=== PATIENT | female | born 1990 | race African-American/Black ===

== ENCOUNTER 2023-07-25 07:16 | Emergency (ER) | payer SELFPAY ==
[2023-07-25] MEDS ORDERED: Multivit, Adult Inj 10 ML VIAL ONE (08:11)
[2023-07-25] MEDS ORDERED: Lorazepam 2 MG/ML VIAL ONE (08:11)
[2023-07-25] MEDS ORDERED: Folic Acid 5 MG/ML MDV ONE (08:11)
[2023-07-25] MEDS ORDERED: Ondansetron PF 4 MG/2 ML Vial ONE (08:11)
[2023-07-25] MEDS ORDERED: Pantoprazole 40 MG VIAL ONE (08:11)
[2023-07-25] MEDS ORDERED: Thiamine HCl 200 MG/2 ML VIAL ONE (08:11)
[2023-07-25] MEDS ORDERED: chlordiazePOXIDE HCl 25 MG CAP PO SCH (08:30)
[2023-07-25] MEDS ORDERED: Dextrose 5 %-0.45 % NaCl 1,000 ML ONE (08:43)
[2023-07-25] MEDS ORDERED: Iopamidol 370 76% 100 ML VIAL ONE (09:00)
[2023-07-25 09:04] LABS: ALT (SGPT) 27 U/L (8-55); AST (SGOT) 169 U/L (5-34); Albumin 2.7 g/dL (3.5-5.0); Alkaline Phosphatase 218 U/L (40-110); Anion Gap 21 mmol/L (10-20); BUN (Urea Nitrogen) 4 mg/dL (7.0-18.7); Bilirubin, Total 2.1 mg/dL (0.2-1.2); Calc. Creatinine Clearance 0 mL/min (70-130); Calcium 7.7 mg/dL (7.8-10.44); Carbon Dioxide 32 mmol/L (22-29); Chloride 85 mmol/L (98-107); Estimated GFR 127; Glucose 96 mg/dL (70-105); Potassium 3.1 mmol/L (3.5-5.1); Protein, Total 5.7 g/dL (6.0-8.3); Sodium 135 mmol/L (136-145)
[2023-07-25 09:09] LABS: Acetaminophen Less than 10 mcg/mL (10.0-30.0); Alcohol 193.4 mg/dL (Less than 10); Salicylate Less than 8.0 mg/dL (15.0-30.0)
[2023-07-25 09:20] LABS: #Lymphocytes 0.4 thou/uL (1.20-3.40); #Monocytes 0.4 thou/uL (0.11-0.59); #Neutrophils 7.1 thou/uL (1.40-6.50); %Basophils 0.4 % (0.0-1.0); %Lymphocytes 4.7 % (21.0-51.0); %Monocytes 4.8 % (0.0-10.0); Hematocrit 21.2 % (36.0-47.0); Hemoglobin 6.6 g/dL (12.0-16.0); Mean Corpuscular HGB CONC 31.1 g/dL (32.0-36.0); Mean Corpuscular Hemoglobin 28.3 pg (27.0-31.0); Mean Corpuscular Volume 90.8 fl (78.0-98.0); Mean Platelet Volume 7.3 fL (7.4-10.4); Platelet Count 397 10x3/uL (130-400); RBC Distribution Width 20.3 % (11.5-14.5); Red Blood Cell (RBC) Count 2.34 mill/uL (4.20-5.40); White Blood Cell (WBC) Count 7.9 10x3/uL (4.8-10.8)
[2023-07-25] MEDS ORDERED: Sodium Chloride 0.9% 1,000 ML ONE (09:55)
[2023-07-25 10:20] LABS: BHCG - Serum Negative (NEGATIVE); Pregs Control Bar Appear? YES (CONTROL BAR)
[2023-07-25 10:37] LABS: INR-International Normal Ratio 1.2; Prothrombin Time 15.6 sec (12.0-14.7)
[2023-07-25 10:38] LABS: PTT 29.4 sec (22.9-36.1)
[2023-07-25] MEDS ORDERED: Sodium Chloride 0.9% 500 ML ONE (11:43)
[2023-07-25 12:13] LABS: Bilirubin Negative (Negative); Blood, Urine Negative (Negative); Clarity Clear (Clear); Glucose, Urine (Dipstick) Negative (Negative); Ketone, Urine 15 mg/dL (Negative); Leukocyte Negative (Negative); Nitrite Negative (Negative); Protein, Urine (Dipstick) Negative (Neg-Trace)
[2023-07-25 12:20] LABS: Squamous Epithelial 0-3 HPF (0-3)
[2023-07-25 12:22] LABS: Amphetamine Not Detected (NotDetected); Barbiturates Screen Not Detected (NotDetected); Benzodiazepine Screen Detected (NotDetected); Cocaine Metabolite Screen Not Detected (NotDetected); Methadone Not Detected (NotDetected); Methamphetamine Not Detected (NotDetected); Opiate Screen Not Detected (NotDetected); Oxycodone Screen Not Detected (NotDetected); Phencyclidine (PCP) Not Detected (NotDetected); THC/Cannabinoid Screen Not Detected (NotDetected); Tricyclic Screen Not Detected (NotDetected)
== END 2023-07-25 12:30 | disposition short-term general hospital (02) ==
LOC: NAV ERS 07:16
DX: K92.2 Gastrointestinal hemorrhage, unspecified (principal); K70.30 Alcoholic cirrhosis of liver without ascites; F10.129 Alcohol abuse with intoxication, unspecified; Y90.6 Blood alcohol level of 120-199 mg/100 ml
CPT/HCPCS: 36415; 74177; 80053; 80306; 80307; 81001; 82274; 84703; 85025; 85610; 85730; 86850; 86900; 86901; 93005; 96365; 96366; 96375; C9113; J2060; J2405; J3411; J7030; J7042; J7050; Q9967

== ENCOUNTER 2023-09-08 11:28 | Emergency (ER) | payer OTHER, SELFPAY ==
[2023-09-08] MEDS ORDERED: Lorazepam 2 MG/ML VIAL ONE (12:46)
[2023-09-08] MEDS ORDERED: Ondansetron PF 4 MG/2 ML Vial ONE (12:47)
[2023-09-08] MEDS ORDERED: Thiamine HCl 200 MG/2 ML VIAL ONE (12:47)
[2023-09-08] MEDS ORDERED: Sodium Chloride 0.9% 1,000 ML ONE (12:47)
[2023-09-08] MEDS ORDERED: Sodium Chloride 0.9% 100 ML ONE (12:56)
[2023-09-08 13:18] LABS: Hematocrit 44.4 % (36.0-47.0); Hemoglobin 13.8 g/dL (12.0-16.0); MDiff Complete? YES; Manual Diff?? YES; Mean Corpuscular HGB CONC 31.1 g/dL (32.0-36.0); Mean Corpuscular Hemoglobin 29.7 pg (27.0-31.0); Mean Corpuscular Volume 95.2 fl (78.0-98.0); Mean Platelet Volume 8.2 fL (7.4-10.4); Platelet Count 286 10x3/uL (130-400); RBC Distribution Width 15.4 % (11.5-14.5); Red Blood Cell (RBC) Count 4.67 mill/uL (4.20-5.40); White Blood Cell (WBC) Count 6.2 10x3/uL (4.8-10.8)
[2023-09-08 13:21] LABS: ALT (SGPT) 39 U/L (8-55); AST (SGOT) 154 U/L (5-34); Albumin 4.3 g/dL (3.5-5.0); Alkaline Phosphatase 142 U/L (40-110); Anion Gap 24 mmol/L (10-20); BUN (Urea Nitrogen) Less than 4 mg/dL (7.0-18.7); Bilirubin, Total 0.9 mg/dL (0.2-1.2); Calc. Creatinine Clearance 0 mL/min (70-130); Carbon Dioxide 26 mmol/L (22-29); Chloride 100 mmol/L (98-107); Estimated GFR 121; Globulin 3.8 g/dL (2.4-3.5); Glucose 101 mg/dL (70-105); Potassium 3.1 mmol/L (3.5-5.1); Protein, Total 8.1 g/dL (6.0-8.3); Sodium 147 mmol/L (136-145)
[2023-09-08 13:22] LABS: Acetaminophen Less than 10 mcg/mL (10.0-30.0); Alcohol 378.3 mg/dL (Less than 10); Lipase 86 U/L (8-78); Salicylate Less than 8.0 mg/dL (15.0-30.0)
[2023-09-08 13:33] LABS: Eosinophils 1 % (0-10); Lymphocytes 48 % (21-51); Monocytes 3 % (0-10); Neutrophil 48 % (42-75)
[2023-09-08 13:34] LABS: Anisocytosis SLIGHT = 6-15 cells (100X) (0-5/hpf); Hypochromia SLIGHT = 6-15 cells (100X) (0-5/hpf); Macrocytosis SLIGHT = 6-15 cells (100X) (0-5/hpf); Stomatocytes SLIGHT = 2-5 cells (100X) (0-1/hpf); Target Cells SLIGHT = 2-5 cells (100X) (0-1/hpf)
[2023-09-08 13:35] LABS: Platelet Adequacy Comment Appears Adequate
[2023-09-08 14:00] LABS: Bilirubin Negative (Negative); Blood, Urine Negative (Negative); Clarity Clear (Clear); Glucose, Urine (Dipstick) Negative (Negative); Ketone, Urine Negative (Negative); Leukocyte Negative (Negative); Nitrite Negative (Negative); Protein, Urine (Dipstick) Negative (Neg-Trace); Urobilinogen 0.2 mg/dL (Less than 2)
[2023-09-08 14:05] LABS: CAUTI Indications for Culture Dysuria,urgency,freq; RBC/HPF None Seen HPF (0-3); WBC/HPF None Seen HPF (0-3)
[2023-09-08 14:06] LABS: Bacteria/HPF Rare-Few HPF (None Seen); Squamous Epithelial 21-50 HPF (0-3); Urine Culture Reflex No No
[2023-09-08 14:08] LABS: Amphetamine Not Detected (NotDetected); Barbiturates Screen Not Detected (NotDetected); Benzodiazepine Screen Not Detected (NotDetected); Cocaine Metabolite Screen Not Detected (NotDetected); Methadone Not Detected (NotDetected); Methamphetamine Not Detected (NotDetected); Opiate Screen Not Detected (NotDetected); Oxycodone Screen Not Detected (NotDetected); Phencyclidine (PCP) Not Detected (NotDetected); THC/Cannabinoid Screen Not Detected (NotDetected); Tricyclic Screen Not Detected (NotDetected)
[2023-09-08] MEDS ORDERED: Ibuprofen 100 MG/5 ML UDCUP ONE (14:27)
== END 2023-09-08 16:52 | disposition home or self-care (01) ==
LOC: NAV ERS 11:28
DX: F10.129 Alcohol abuse with intoxication, unspecified (principal); E87.6 Hypokalemia
CPT/HCPCS: 36415; 80053; 80306; 80307; 81001; 83690; 85025; 96361; 96365; 96375; J2060; J2405; J3411; J7050